=== PATIENT | male | born 2000 | race Caucasian/White ===

== ENCOUNTER 2024-04-03 00:48 | Emergency (ER) | payer OTHER ==
[~2024-04-03] VITALS: Ht 175.3 cm; Wt 82.3 kg
[2024-04-03 01:51] VITALS: BP 115/73; PULSE 79; TEMP 98
== END 2024-04-03 01:51 | disposition home or self-care (01) ==
LOC: COL.ER 00:48
DX: B35.3 Tinea pedis (principal)